=== PATIENT | male | born 1975 | race Caucasian/White ===

== ENCOUNTER 2019-08-01 22:14 | Emergency (ER) | payer MEDICAID ==
[~2019-08-01] VITALS: Ht 177.8 cm; Wt 100.7 kg
[2019-08-01] MEDS ORDERED: FLUORESCEIN SODIUM OPHTH 1 EA STRIP ONE (22:25)
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
--- NOTE | 2019-08-01 22:29 | NUR ---
PT ABLE TO AMBULATE. NO ACUTE DISTRESS NOTED
--- NOTE | 2019-08-01 22:32 | NUR ---
RADIOLOGY AT BEDSIDE
[2019-08-01] MEDS ORDERED: FLUORESCEIN SODIUM OPHTH 1 EA STRIP OP ONE (23:00)
[2019-08-01] MEDS ORDERED: TETRACAINE HCL 0.5% OPHTALMIC 15 ML BOTTLE OP ONE (23:00)
--- NOTE | 2019-08-01 23:32 | NUR ---
PATIENT RESTING COMFORTABLY.
[2019-08-01 23:48] VITALS: BP 132/78
--- NOTE | 2019-08-01 23:48 | NUR ---
Patient discharged to home in stable condition. Written and verbal after care instructions given. Patient verbalizes understanding of instruction. PT ambulatory with a steady gait
== END 2019-08-01 23:49 | disposition home or self-care (01) ==
LOC: ER 22:18
DX: T15.02XA Foreign body in cornea, left eye, initial encounter (principal); X58.XXXA Exposure to other specified factors, initial encounter; Y93.89 Activity, other specified; Y92.89 Other specified places as the place of occurrence of the external cause; Y99.8 Other external cause status
CPT/HCPCS: 70200-TC

== ENCOUNTER 2024-12-10 11:46 | Emergency (ER) | payer MEDICAID, OTHER ==
[~2024-12-10] VITALS: Ht 180.3 cm; Wt 108.9 kg
[2024-12-10 11:52] VITALS: BP 153/90; TEMP 98
[2024-12-10] MEDS ORDERED: DIPH25TA25 PO (12:09)
[2024-12-10] MEDS ORDERED: LORA10TA7 PO (12:09)
[2024-12-10 12:19] VITALS: O2SAT 99
== END 2024-12-10 12:22 | disposition home or self-care (01) ==
LOC: ER 11:54
DX: H93.12 Tinnitus, left ear (principal)